=== PATIENT | male | born 1975 | race Caucasian/White ===

== ENCOUNTER 2023-02-26 12:42 | Emergency (ER) | payer OTHER ==
[2023-02-26 12:56] VITALS: BP 167/97; PULSE 90; RESP 16; TEMP 99.4; BMI 31.4
[2023-02-26] MEDS ORDERED: ACETAMINOPHEN 325 MG TABLET (FP) PO ONE (13:25)
[2023-02-26] MEDS ORDERED: MECLIZINE HCL 25 MG TABLET (FP) PO ONE (13:25)
[2023-02-26] MEDS ORDERED: ACETAMINOPHEN 325 MG TABLET (FP) ONE (13:39)
[2023-02-26] MEDS ORDERED: MECLIZINE HCL 25 MG TABLET (FP) ONE (13:39)
[2023-02-26 14:22] LABS: HEMATOCRIT 44.8 % (35.4-49); MCH 31.3 pg (25.7-33.7); MCHC 33.4 g/dl (32.0-35.9); MEAN CELL VOLUME 93.7 fl (80-96); MEAN PLT VOLUME 7.6 fl (7.5-11.1); RBC 4.78 10^6/uL (4.00-5.60); RDW 13.5 % (11.9-15.9); WHITE BLOOD COUNT 7.5 10^3/uL (4.0-10.8)
[2023-02-26 14:27] LABS: ALBUMIN 4.8 g/dl (3.4-5.0); BILIRUBIN,TOTAL 0.4 mg/dl (0.2-1); CALCIUM 9.9 mg/dl (8.5-10.1); CREATININE 0.7 mg/dl (0.6-1.3); POTASSIUM 4.6 mmol/L (3.5-5.1); TOT PROT 7.2 g/dl (6.4-8.2)
[2023-02-26 16:26] LABS: THROAT:GRP A STREP NOT DETECTED (NOTDETECTED)
== END 2023-02-26 15:12 | disposition home or self-care (01) ==
LOC: FER 12:42
DX: R42 Dizziness and giddiness (principal); J02.9 Acute pharyngitis, unspecified; Z20.822 Contact with and (suspected) exposure to COVID-19
CPT/HCPCS: 0241U-QW; 36415; 70450-TC; 80053; 85027; 87651; 93005; 99285-25

== ENCOUNTER 2023-03-01 14:23 | Emergency (ER) | payer OTHER ==
[2023-03-01] MEDS ORDERED: ACETAMINOPHEN 1000 MG/100 ML BAG IVPB ONE (14:57)
[2023-03-01] MEDS ORDERED: LACTATED RINGERS SOLUTION 1000 ML INFUS.BAG IV ONE (14:57)
[2023-03-01 15:01] VITALS: BP 129/87; PULSE 81; RESP 18; TEMP 98.7; BMI 30.7
[2023-03-01 15:12] LABS: HEMOGLOBIN 14.4 G/dL (11.7-16.9); MCH 31.4 pg (25.7-33.7); MCHC 33.4 g/dl (32.0-35.9); MEAN CELL VOLUME 94.2 fl (80-96); MEAN PLT VOLUME 7.7 fl (7.5-11.1); PLATELET COUNT 284.3 10^3/uL (134-434); RBC 4.57 10^6/uL (4.00-5.60); RDW 13.1 % (11.9-15.9); WHITE BLOOD COUNT 8.3 10^3/uL (4.0-10.8)
[2023-03-01] MEDS ORDERED: ACETAMINOPHEN INJECTION 100 ML IVPB ONE (15:24)
[2023-03-01 16:06] LABS: INR 1.1 (0.83-1.09); PROTHROMBIN TIME (PATIENT) 12.8 SEC (9.7-13.0)
[2023-03-01 16:09] LABS: ACTIVATED PTT 29.7 SECONDS (25.2-36.5)
[2023-03-01 16:30] LABS: ALBUMIN 4.7 g/dl (3.4-5.0); BILIRUBIN,TOTAL 0.4 mg/dl (0.2-1); CALCIUM 9.7 mg/dl (8.5-10.1); CREATININE 0.7 mg/dl (0.6-1.3); POTASSIUM 4.1 mmol/L (3.5-5.1); TOT PROT 6.8 g/dl (6.4-8.2)
[2023-03-01 17:09] LABS: PLATELET ESTIMATE ADEQUATE
[2023-03-01] MEDS ORDERED: MAG HYDROX/ALH/SMC/DPHA/LIDO 240 ML MOUTHWASH MM SCH (18:00)
== END 2023-03-01 17:12 | disposition home or self-care (01) ==
LOC: FER 14:23
PROC: 3E033NZ Introduction of Analgesics, Hypnotics, Sedatives into Peripheral Vein, Percutaneous Approach (ICD-10-PCS; principal; 2023-03-01)
DX: R42 Dizziness and giddiness (principal); R55 Syncope and collapse; R51.9 Headache, unspecified; K13.79 Other lesions of oral mucosa
CPT/HCPCS: 36415; 70496-TC; 70498-TC; 80053; 83880; 84484; 85027; 85610; 85651; 85730; 86850; 86900; 86901; 93005; 99285-25